=== PATIENT | female | born 1960 | race Caucasian/White ===

== ENCOUNTER 2016-06-05 11:02 | Outpatient (RCR) | payer OTHER ==
--- OUTSIDE RECORDS SUMMARY | 2016-05-29 11:04 | XMS REPORT | Continuity of Care Document ---
Author Author [facility] Organization [facility] Address Unknown Phone Unavailable Allergies Medications Problems Date Dx Coded Attending Type Code Diagnosis Diagnosed By 05/29/2009 Ot 627.2 05/29/2009 Ot V10.3 05/29/2009 Ot V67.1 06/24/2010 Ot V10.3 HX OF BREAST MALIGNANCY 12/30/2010 Ot 627.2 SYMPT MENOPAUSE OR FEMALE CLIMACTERIC ST 12/30/2010 Ot V10.3 HX OF BREAST MALIGNANCY 12/30/2010 Ot V67.1 RADIOTHERAPY FOLLOW-UP 01/05/2012 Ot 627.2 SYMPT MENOPAUSE OR FEMALE CLIMACTERIC ST 01/05/2012 Ot V10.3 HX OF BREAST MALIGNANCY 01/05/2012 Ot V67.1 RADIOTHERAPY FOLLOW-UP 07/05/2012 Ot 627.2 SYMPT MENOPAUSE OR FEMALE CLIMACTERIC ST 07/05/2012 Ot V10.3 HX OF BREAST MALIGNANCY 07/05/2012 Ot V67.1 RADIOTHERAPY FOLLOW-UP 05/16/2013 CANDY PARK, KEITH Ot 627.2 SYMPT MENOPAUSE OR FEMALE CLIMACTERIC ST 05/16/2013 CANDY PARK, KEITH Ot V13.89 PERSONAL HISTORY OF OTHER SPECIFIED DISE 05/16/2013 CANDY PARK, KEITH Ot V67.1 RADIOTHERAPY FOLLOW-UP 05/04/2014 Ot V10.3 05/04/2014 Ot 627.2 05/04/2014 Ot V10.3 05/04/2014 Ot V58.69 05/04/2014 Ot V67.1 05/04/2014 Ot 627.2 05/04/2014 Ot V10.3 05/04/2014 Ot V67.1 05/04/2014 Ot V10.3 05/08/2014 CANDY PARK, KEITH Ot 627.2 05/08/2014 KEITH GUPTA MD Ot V13.89 05/08/2014 CANDY PARK, KEITH Ot V67.1 05/11/2014 KEITH GUPTA MD Ot 627.2 SYMPT MENOPAUSE OR FEMALE CLIMACTERIC ST 05/11/2014 KEITH GUPTA MD Ot V13.89 PERSONAL HISTORY OF OTHER SPECIFIED DISE 05/11/2014 KEITH GUPTA MD Ot V67.1 RADIOTHERAPY FOLLOW-UP 10/04/2014 Ot 627.2 10/04/2014 Ot V10.3 10/04/2014 Ot V67.1 10/04/2014 Ot V10.3 11/08/2014 Ot 627.2 11/08/2014 Ot V10.3 11/08/2014 Ot V67.1 11/08/2014 Ot V10.3 11/20/2014 Ot 627.2 11/20/2014 Ot V10.3 11/20/2014 Ot V67.1 11/20/2014 Ot V10.3 11/28/2014 Ot 627.2 11/28/2014 Ot V10.3 11/28/2014 Ot V67.1 11/28/2014 Ot V10.3 06/12/2015 KEITH GUPTA MD Ot Z08 ENCNTR FOR FOLLOW-UP EXAM AFTER TRTMT FO 06/12/2015 KEITH GUPTA MD Ot Z85.3 PERSONAL HISTORY OF MALIGNANT NEOPLASM O 06/12/2015 KEITH GUPTA MD Ot Z92.3 PERSONAL HISTORY OF IRRADIATION 08/31/2015 Ot V10.3 HX OF BREAST MALIGNANCY Procedures Results Encounters ACCT No. Visit Date/Time Discharge Status Pt. Type Provider Facility Loc./Unit Complaint [id number] 05/24/2014 15:55:34 05/24/2014 23: 59:59 CLS Outpatient Nolberto Sumner [id number] 03/08/2014 12:51:14 03/08/2014 23: 59:59 CLS Outpatient Ronald Overton [id number] 02/27/2014 14:56:00 02/27/2014 23: 59:59 [place] Outpatient Ronald Overton [id number] 02/22/2014 15:35:15 02/22/2014 23: 59:59 CLS Outpatient Ronald Overton [id number] 02/21/2014 18:04:14 02/21/2014 23: 59:59 CLS Outpatient Nicci Marcos
[2016-05-29 15:46] LABS: BASOPHILS # (AUTO) 0.1 10^3/uL (0.0-0.1); BASOPHILS % (AUTO) 1 % (0-10); EOSINOPHILS # (AUTO) 0.4 10^3/uL (0.0-0.3); EOSINOPHILS % (AUTO) 5 % (0-10); LYMPHOCYTES # (AUTO) 1.6 X 10^3 (1.0-4.0); LYMPHOCYTES % (AUTO) 19 % (12-44); MEAN CORPUSCULAR HEMOGLOBIN 31 PG (25-34); MEAN CORPUSCULAR HGB CONC 34 G/DL (32-36); MEAN CORPUSCULAR VOLUME 91 FL (80-99); MEAN PLATELET VOLUME 12.6 FL (7.4-10.4); MONOCYTES # (AUTO) 0.9 X 10^3 (0.0-1.0); MONOCYTES % (AUTO) 11 % (0-12); NEUTROPHILS # (AUTO) 5.6 X 10^3 (1.8-7.8); NEUTROPHILS % (AUTO) 65 % (42-75); PLATELET COUNT 274 10^3/uL (130-400); RED BLOOD COUNT 4.47 10^6/uL (4.35-5.85); RED CELL DISTRIBUTION WIDTH 12.9 % (10.0-14.5); WHITE BLOOD COUNT 8.7 10^3/uL (4.3-11.0)
[2016-05-29 16:34] LABS: ALANINE AMINOTRANSFERASE 16 U/L (0-55); ALBUMIN 4.4 G/DL (3.2-4.5); ANION GAP 11 MMOL/L (5-14); ASPARTATE AMINO TRANSFERASE 20 U/L (5-34); BILIRUBIN,TOTAL 0.4 MG/DL (0.1-1.0); BLOOD UREA NITROGEN 16 MG/DL (7-18); BUN/CREATININE RATIO 21; CALCIUM 10.5 MG/DL (8.5-10.1); CARBON DIOXIDE 30 MMOL/L (21-32); CHLORIDE 100 MMOL/L (98-107); CREATININE SERUM 0.76 MG/DL (0.60-1.30); GFR ESTIMATED > 60; GLUCOSE 79 MG/DL (70-105); POTASSIUM 4.5 MMOL/L (3.6-5.0); SODIUM 141 MMOL/L (135-145); TOTAL PROTEIN 6.9 G/DL (6.4-8.2)
== END 2016-06-10 10:01 | disposition home or self-care (01) ==
LOC: PAR 11:02
PROVIDERS: ATTEND Internal Medicine Hematology & Oncology
DX: Z08 Encounter for follow-up examination after completed treatment for malignant neoplasm (principal); Z85.3 Personal history of malignant neoplasm of breast; Z92.3 Personal history of irradiation
CPT/HCPCS: 36415; 80053; 85025; 86300; 99213